=== PATIENT | female | born 1980 | race Caucasian/White ===

== ENCOUNTER 2017-05-11 19:34 | Emergency (ER) | payer BC ==
[2017-05-11 19:40] VITALS: BMI 35.2
[2017-05-11] MEDS ORDERED: NS 1000 ML 1,000 ML ONE (20:52)
[2017-05-11] MEDS ORDERED: ZOFRAN INJ 4 MG VIAL IVP ONE (20:58)
[2017-05-11] MEDS ORDERED: ZOFRAN INJ 4 MG VIAL ONE (20:58)
[2017-05-11] MEDS ORDERED: NS 1000 ML 1,000 ML IV ONE (20:58)
--- NOTE | 2017-05-11 21:12 | DR.GENAD ---
HPI - PCP Primary Care Physician: JOSETTE - Complaint/Symptoms Chief Complaint Doctors Comments: Patient admits to chills and achy all day today and yesterday. Chief Complaint:: PT IS 14 WEEK OB WITH C/O N/V FOR THE LAST 14 HOURS - Source History Provided: Patient - Mode of Arrival Mode of Arrival: Ambulatory - Timing Onset of Chief Complaint: 05/11/17 PMH - PMH Past Medical History: Yes Past Medical History: Anxiety, SVT Past Surgical History: Yes Surgical History: Ortho Surgery Past Surgical History Comment: KNEE ACL - Family History History of Family Medical Conditions: No - Social History Does patient currently use any type of tobacco product: No Have you used tobacco products in the last 12 months: No Type of Tobacco Use: None Does any household member use tobacco: No Do you use any recreational Drugs:: No Lives With: Family Lives Where: Home - infectious screening In the last 2 months have you had wt loss of >10#?: NO Have you had fever, night sweats or hemotysis?: No Have you traveled outside the country in the last 6 months?: No Isolation: Standard ROS - Review of Systems Eyes: No Symptoms Reported ENTM: No Symptoms Reported Respiratoy: No Symptoms Reported Cardiovascular: No Symptoms Reported Gastrointestinal/Abdominal: No Symptoms Reported Genitourinary: No Symptoms Reported Neurological: No Symptoms Reported Integumentary: No Symptoms Reported Hematologic/Lymphatic: No Symptoms Reported Endocrine: No Symptoms Reported Psychiatric: No Symptoms Reported All Other Systems: Reviewed and Negative PE - Vital Signs Vitals: Temperature 97.6 F Pulse Rate 123 Respiratory Rate 18 Blood Pressure [Left Arm] 126/78 Blood Pressure 122/69 O2 Sat by Pulse Oximetry 98 - General Limitations: No Limitations General Appearance: Alert, In No Apparent Distress - Head Head Exam: Normal Inspection, Atraumatic - Eyes Eye exam: Normal Appearance, PERRL, EOMI - ENT ENT Exam: Normal Exam External Ear Exam: Normal External Inspection TM/Canal Exam: Bilateral Normal Nose Exam: Normal Nose Exam Mouth Exam: Normal Inspection Throat Exam: Normal Inspection - Neck Neck Exam: Normal Inspection, Full ROM - Chest Chest Inspection: Normal Inspection - Respiratory Respiratory Exam: Normal Lung Sounds Bilat Respiratory Exam: Bilateral Clear to Auscultation - Cardiovascular Cardiovascular Exam: Regular Rate, Normal Rhythm - Abdominal Exam Abdominal Exam: Normal Inspection, Normal Bowel Sounds, Soft Abdominal Tenderness: Mild - Extremities Extremities Exam: Normal Inspection. negative: Normal Capillary Refill ( prolonged) - Back Back Exam: Normal Inspection, Full ROM - Neurologic Neurological Exam: Alert, Oriented X3, CN II-XII Intact - Psychiatric Psychiatric Exam: Normal Affect, Normal Mood - Skin Skin Exam: Warm, Dry, Intact ROR - Labs Reviewed Result Diagrams: 05/11/17 21:40 05/11/17 21:40 Laboratory: WBC 11.0 X10^3/uL (3.6-10.0) H 05/11/17 21:40 RBC 4.09 X10^6/uL (3.5-5.4) 05/11/17 21:40 Hgb 12.9 g/dL (12.0-16.0) 05/11/17 21:40 Hct 37.7 % (36.0-47.0) 05/11/17 21:40 MCV 92.2 fL (80.0-100.0) 05/11/17 21:40 MCH 31.5 pg (27.0-34.0) 05/11/17 21:40 MCHC 34.1 g/dL (33.0-35.0) 05/11/17 21:40 RDW 12.8 % (11.6-16.5) 05/11/17 21:40 Plt Count 202 X10^3/uL (150.0-450.0) 05/11/17 21:40 MPV 10.1 fL (7.4-11.0) 05/11/17 21:40 Neut % 82.8 % (42.0-75.0) H 05/11/17 21:40 Lymph % 13.0 % (21.0-51.0) L 05/11/17 21:40 Nicholas % 3.5 % (0.0-13.0) 05/11/17 21:40 Eos % 0.3 % (0.9-2.9) L 05/11/17 21:40 Baso % 0.4 % (0.2-1.0) 05/11/17 21:40 Neut # 9.1 x10^3/uL (2.2-4.8) H 05/11/17 21:40 Lymph # 1.4 X10^3/uL (1.3-2.9) 05/11/17 21:40 Nicholas # 0.4 x10^3/uL (0.3-0.8) 05/11/17 21:40 Eos # 0.0 x10^3/uL (0.0-0.2) 05/11/17 21:40 Baso # 0.0 X10^3/uL (0.0-0.1) 05/11/17 21:40 Absolute Nucleated RBC 0.0 /100WBC 05/11/17 21:40 Sodium 137 mmol/L (136-145) 05/11/17 21:40 Corrected Sodium TNP 05/11/17 21:40 Potassium 3.5 mmol/L (3.5-5.1) 05/11/17 21:40 Chloride 105 mmol/L (98-107) 05/11/17 21:40 Carbon Dioxide 23.0 mmol/L (21-32) 05/11/17 21:40 BUN 7 mg/dL (7-18) 05/11/17 21:40 Creatinine 0.61 mg/dL (0.55-1.02) 05/11/17 21:40 Est GFR (MDRD) Af Amer > 60 (>60) 05/11/17 21:40 Est GFR (MDRD) Non-Af > 60 (>60) 05/11/17 21:40 Glucose 98 mg/dL (65-99) 05/11/17 21:40 Calcium 8.7 mg/dL (8.5-10.1) 05/11/17 21:40 Corrected Calcium 9.4 mg/dL (8.5-10.1) 05/11/17 21:40 Total Bilirubin 0.20 mg/dL (0.2-1.0) 05/11/17 21:40 AST 24 Units/L (15-37) 05/11/17 21:40 ALT 48 Units/L (12-78) 05/11/17 21:40 Alkaline Phosphatase 23 Units/L (46-116) L 05/11/17 21:40 Total Protein 6.7 g/dL (6.4-8.2) 05/11/17 21:40 Albumin 3.1 g/dL (3.4-5.0) L 05/11/17 21:40 Globulin 3.6 g/dL (2.5-4.5) 05/11/17 21:40 Albumin/Globulin Ratio 0.9 Ratio (1.1-2.1) L 05/11/17 21:40 - Diagnosis Discharge Problem: Influenza-like symptoms, Dehydration, mild - Discharge Plan Condition: Stable - Follow ups/Referrals Follow ups/Referrals: BENJI FINCH [Primary Care Provider] - 3 days - Instructions
[2017-05-11 21:50] LABS: BASOPHILS % (AUTO) 0.4 % (0.2-1.0); EOSINOPHILS % (AUTO) 0.3 % (0.9-2.9); HEMATOCRIT 37.7 % (36.0-47.0); HEMOGLOBIN 12.9 g/dL (12.0-16.0); LYMPHOCYTES # (AUTO) 1.4 X10^3/uL (1.3-2.9); MEAN CORPUSCULAR HEMOGLOBIN 31.5 pg (27.0-34.0); MEAN CORPUSCULAR HGB CONC 34.1 g/dL (33.0-35.0); MEAN CORPUSCULAR VOLUME 92.2 fL (80.0-100.0); MEAN PLATELET VOLUME 10.1 fL (7.4-11.0); MONOCYTES # (AUTO) 0.4 x10^3/uL (0.3-0.8); MONOCYTES % (AUTO) 3.5 % (0.0-13.0); NEUTROPHILS # (AUTO) 9.1 x10^3/uL (2.2-4.8); NEUTROPHILS % (AUTO) 82.8 % (42.0-75.0); PLATELET COUNT 202 X10^3/uL (150.0-450.0); RED BLOOD COUNT 4.09 X10^6/uL (3.5-5.4); RED CELL DISTRIBUTION WIDTH 12.8 % (11.6-16.5)
[2017-05-11 22:03] LABS: ALANINE AMINOTRANSFERASE 48 Units/L (12-78); ALBUMIN 3.1 g/dL (3.4-5.0); ALKALINE PHOSPHATASE 23 Units/L (46-116); ASPARTATE AMINO TRANSFERASE 24 Units/L (15-37); BLOOD UREA NITROGEN 7 mg/dL (7-18); CALCIUM 8.7 mg/dL (8.5-10.1); CHLORIDE 105 mmol/L (98-107); COR CA(FOR HYPOALB) 9.4 mg/dL (8.5-10.1); CREATININE 0.61 mg/dL (0.55-1.02); SODIUM 137 mmol/L (136-145); TOTAL PROTEIN 6.7 g/dL (6.4-8.2); eGFR BLACK RACES > 60 (>60); eGFR NON BLACK RACES > 60 (>60)
[2017-05-11 22:37] VITALS: BP 122/78
== END 2017-05-11 22:37 | disposition home or self-care (01) ==
LOC: ER 19:45
DX: J11.1 Influenza due to unidentified influenza virus with other respiratory manifestations (principal); E86.0 Dehydration; Z3A.14 14 weeks gestation of pregnancy
CPT/HCPCS: 36415; 80053; 85025; 96365; 96374; 99282; 99283; A4222; J2405